=== PATIENT | male | born 1950 | race Caucasian/White ===

== ENCOUNTER 2018-09-02 04:31 | Inpatient (IN) | payer MEDICARE ==
[2018-09-02 05:17] VITALS: BMI 28.8
[2018-09-02] MEDS ORDERED: Acetaminophen 1,000 MG in Premix Bag 1 BAG IVPB PRN ×2 (06:08→07:36)
[2018-09-02] MEDS: Lactated Ringer's 1,000 ML IV SCH ×3 (06:10→21:49)
[2018-09-02] MEDS ORDERED: Dextrose 50% Abboject 50 ML SYRINGE SLOW IVP PRN (07:36)
[2018-09-02] MEDS ORDERED: Ketorolac Tromethamine 30 MG/ML VIAL IVP PRN (07:36)
[2018-09-02] MEDS ORDERED: Dextrose 5% in Water 1,000 ML IV PRN (07:36)
[2018-09-02] MEDS ORDERED: HumaLOG 300 UNITS/3 ML VIAL SC PRN (07:36)
[2018-09-02] MEDS ORDERED: Ketorolac Tromethamine 30 MG/ML VIAL IVP SCH (07:45)
[2018-09-02] MEDS ORDERED: Acetaminophen 1,000 MG in Premix Bag 1 BAG IVPB SCH (07:45)
[2018-09-02] MEDS ORDERED: Meropenem 2 GM in Admixture Fee 1 EACH IVPB SCH (07:45)
--- NOTE | 2018-09-02 07:54 | HP ---
HISTORY OF PRESENT ILLNESS: A 67-year-old male patient with 1 year history of abdominal pain, lower intermittent. This pain became extremely severe, increased belching, and nausea. No vomiting and he could not have a bowel movement. He presented to the emergency room and had a CAT scan, initially evaluated at [facility]. This reveals a distended stomach with food material, constipation and distal small bowel dilatation and swirling suggestive of internal hernia. The patient refused an NG tube. He reports today he had a small bowel movement last night after much effort. ALLERGIES: NONE. SOCIAL HISTORY: Tobacco, none. Alcohol, none. MEDICATIONS: Metformin 1000 mg b.i.d., glipizide 5 b.i.d., Flomax 0.4 daily, metoprolol 50 mg b.i.d., lisinopril 5 mg a day, Tradjenta 5 mg daily, furosemide 10 mg b.i.d., Plavix 75 mg a day, atorvastatin 80 mg daily, and aspirin 81 mg a day. PAST SURGICAL HISTORY: Colonoscopy 2 years ago. PAST MEDICAL HISTORY: Coronary artery disease with coronary stents placed in [place] 4 years ago. He states that he was told he had a silent [place]. He was seen by Dr. Hoover locally. He had a cardiac stress test 3 months ago that was normal. The patient is asymptomatic from a cardiac standpoint. Diabetes insulin dependent, hypertension, elevated cholesterol. REVIEW OF SYSTEMS: Ten-point noncontributory except as above. FAMILY HISTORY: Noncontributory. PHYSICAL EXAMINATION: VITAL SIGNS: 6 feet 1 inch, weight 218 pounds, 28 BMI, temperature 98.2, pulse 97, respirations 18, blood pressure 163/91. HEENT: Unremarkable. Sclerae nonicteric. LUNGS: Clear to auscultation. CARDIAC: Regular rate and rhythm. No murmur or gallop. ABDOMEN: Soft. Tenderness in his lower abdomen with mild distention. EXTREMITIES: Unremarkable. No ankle edema. SKIN: Non-jaundiced. LYMPH: No neck, axillary or groin lymphadenopathy. Palpable pedal pulses. LABORATORY DATA: Basic metabolic profile is normal. Glucose 120. White count 8 and hemoglobin 13. ASSESSMENT/PLAN: 1. Abdominal pain, chronic and more acute with CAT scan findings suggestive of possible internal hernia, I would recommend laparoscopy and procedures indicated, possible open procedure, possible adhesiolysis, possible bowel resection. He understands risks and benefits, and consents. 2. Diabetes mellitus. 3. Hypertension. 4. Coronary artery disease, stable. Stress test 3 months ago, Dr. Hoover's office, normal, asymptomatic from cardiac standpoint. Job ID: [id number]
[2018-09-02] MEDS: Pantoprazole 40 MG VIAL IVP SCH (08:40)
[2018-09-02] MEDS: Metoprolol Tartrate 50 MG TAB PO SCH ×2 (08:40→21:42)
[2018-09-02] MEDS ORDERED: Ketorolac Tromethamine 30 MG/ML VIAL ONE (16:08)
[2018-09-02] MEDS ORDERED: Lidocaine 1% PF 5 ML VIAL ONE (16:08)
[2018-09-02] MEDS ORDERED: Glycopyrrolate 0.2 MG/ML 5 ML SYRINGE ONE (16:08)
[2018-09-02] MEDS ORDERED: Ondansetron PF 4 MG/2 ML Vial ONE (16:08)
[2018-09-02] MEDS ORDERED: PROPOFOL 200 MG/20 ML VIAL ONE (16:08)
[2018-09-02] MEDS ORDERED: Dexamethasone 20 MG/5 ML VIAL ONE (16:08)
[2018-09-02] MEDS ORDERED: Rocuronium Bromide 10 MG/ML (10ML VIAL) ONE (16:08)
[2018-09-02] MEDS ORDERED: Meropenem 2 GM in Sodium Chloride 0.9% 100 ML IVPB SCH (16:45)
[2018-09-02] MEDS ORDERED: Bupivacaine HCl 0.5%/Epinephrine 1:200,000/PF 30 ml Vial ONE (17:21)
[2018-09-02] MEDS ORDERED: Fentanyl 100 MCG/2 ML VIAL ONE ×3 (17:29→20:21)
[2018-09-02] MEDS ORDERED: Midazolam HCl 2 mg/2 ml Vial ONE (17:43)
[2018-09-02] MEDS ORDERED: Ondansetron PF 4 MG/2 ML Vial IVP PRN (20:10)
[2018-09-02] MEDS ORDERED: HYDROmorphone 2 MG/ML VIAL SLOW IVP PRN (20:10)
[2018-09-02] MEDS ORDERED: Zolpidem Tartrate 5 MG TAB PO PRN (20:10)
[2018-09-02] MEDS ORDERED: Promethazine HCl 25 MG/ML VIAL IM PRN ×2 (20:10)
[2018-09-02] MEDS ORDERED: diphenhydrAMINE 50 MG/ML VIAL IVP PRN (20:10)
[2018-09-02] MEDS ORDERED: Ondansetron HCl/PF 4 MG/2 ML Vial IVP PRN (20:10)
[2018-09-02] MEDS ORDERED: Promethazine HCl 25 MG/ML VIAL SLOW IVP PRN (20:10)
[2018-09-02] MEDS ORDERED: PACU-Morphine 4MG/ML VIAL SLOW IVP PRN (20:10)
[2018-09-02] MEDS ORDERED: diphenhydrAMINE 50 MG/ML VIAL IM PRN (20:10)
[2018-09-02] MEDS ORDERED: diphenhydrAMINE 25 MG CAP PO PRN (20:10)
[2018-09-02] MEDS ORDERED: Naloxone HCl 0.4 mg/ml Vial IV PRN (20:10)
[2018-09-02] MEDS ORDERED: Communication Order-Pharmacy FS SCH (20:15)
--- NOTE | 2018-09-02 21:17 | RAD ---
SUPINE ABDOMEN: 09/02/18 HISTORY: NG tube placement. NG tube is in place with tip just beyond the EG junction. Bowel gas patter is unremarkable although s uboptimally evaluated. IMPRESSION: NG tube has tip just beyond the EG junction. POS: AGW
[2018-09-02] MEDS: Acetaminophen 1,000 MG in Premix Bag 1 BAG IVPB SCH (21:41)
[2018-09-02] MEDS: Enoxaparin Sodium 40 MG/0.4 ML SYRINGE SC SCH (21:42)
--- NOTE | 2018-09-03 02:45 | OP ---
DATE OF PROCEDURE: 09/02/2018 PREOPERATIVE DIAGNOSIS: Abdominal pain, chronic, with acute exacerbation, adhesions, congenital. POSTOPERATIVE DIAGNOSIS: Abdominal pain, chronic, with acute exacerbation, adhesions, congenital. PROCEDURES PERFORMED: Laparoscopic evaluation, converted to laparotomy; lysis of adhesions; repair of . ANESTHESIA: General, local 0.5% Marcaine with epinephrine 30 mL. DESCRIPTION OF PROCEDURE: The patient was taken to the operating room, where under general anesthesia, abdomen was clipped of hair, prepared with ChloraPrep and draped in routine fashion. Perez catheter was placed at the beginning of the procedure and removed at the end. NG tube placed during the operation, left in place. Abdomen was clipped of hair, prepared with ChloraPrep, and draped in routine fashion incision. A left lateral subcostal incision was made and pneumoperitoneum to 15 mmHg was obtained with a Veress needle, replaced with a 5 port, video laparoscope inserted. Left lower quadrant lateral made and a 5 port placed under laparoscopic visualization. The terminal ileum was identified and small bowel was followed proximally. In the proximal bowel, jejunum, there were multiple adhesions. Laparoscopic adhesiolysis was undertaken, but it was too extensive. Midline laparotomy was made, centered about the umbilicus, carried down through the skin, subcutaneous tissue, and the abdominal cavity sharply. The small bowel delivered out of the wound and adhesiolysis was completed. These were deep congenital adhesions and proximal small bowel was relatively dilated wall, slightly thickened related to distal. I then inspected the small bowel from the ligament of Treitz to cecum twice. As we handled it, there was 1 area of adhesiolysis that began to leak and this was closed with a transverse stapler BRIANNA technique. Staple closure was intact otherwise. Small bowel was inspected thoroughly and no other serosal injuries or leaks occurred. Good hemostasis was noted. Abdominal cavity was irrigated. The omentum was placed between the viscera and the abdominal wall. Seprafilm inserted. Midline fascia closed with continuous suture of #1 PDS. Skin and subcutaneous tissues were irrigated thoroughly. Good hemostasis obtained. Skin was approximated with continuous subcutaneous suture of 4-0 Monocryl as were the laparoscopic port sites. The patient tolerated the procedure well. Job ID: [id number]
[2018-09-03] MEDS: Acetaminophen 1,000 MG in Premix Bag 1 BAG IVPB SCH ×4 (03:13→20:42)
[2018-09-03 06:46] LABS: #Lymphocytes 0.8 thou/uL (1.20-3.40); #Monocytes 0.9 thou/uL (0.11-0.59); #Neutrophils 11.3 thou/uL (1.40-6.50); %Basophils 0.1 % (0.0-1.0); %Eosinophils 0.2 % (0.0-10.0); %Lymphocytes 6.3 % (21.0-51.0); %Monocytes 6.8 % (0.0-10.0); %Neutrophils 86.7 % (42.0-75.0); Hemoglobin 12.2 g/dL (14.0-18.0); Mean Corpuscular HGB CONC 31.9 g/dL (32.0-36.0); Mean Corpuscular Hemoglobin 29.5 pg (27.0-31.0); Mean Corpuscular Volume 92.7 fL (78.0-98.0); Mean Platelet Volume 8.4 fL (7.4-10.4); Platelet Count 176 thou/uL (130-400); RBC Distribution Width 12.2 % (11.5-14.5); Red Blood Cell (RBC) Count 4.13 mill/uL (4.70-6.10)
[2018-09-03 07:00] LABS: Anion Gap 10 mmol/L (10-20); BUN (Urea Nitrogen) 17 mg/dL (8.4-25.7); Calc. Creatinine Clearance 123 mL/min (70-130); Calcium 8.9 mg/dL (7.8-10.44); Carbon Dioxide 28 mmol/L (23-31); Chloride 103 mmol/L (98-107); Estimated GFR-MDRD Greater than 90; Glucose 151 mg/dL (80-115); Sodium 137 mmol/L (136-145)
[2018-09-03] MEDS: Lactated Ringer's 1,000 ML IV SCH ×2 (09:09→18:05)
[2018-09-03] MEDS: Pantoprazole 40 MG VIAL IVP SCH (09:10)
[2018-09-03] MEDS: Tamsulosin HCl 0.4 MG CAP PO SCH ×3 (09:18→18:27)
[2018-09-03] MEDS: Metoprolol Tartrate 50 MG TAB PO SCH ×2 (09:18→20:43)
--- NOTE | 2018-09-03 16:08 | PRG ---
DATE OF SERVICE: 09/03/2018 SUBJECTIVE: Nicho Torres is doing well today. He has not had any nausea or vomiting. NG tube has put out very little in last 24 hours, only 50 mL postoperatively. It is in proper position. OBJECTIVE: VITAL SIGNS: 98.6, 61, 105/64. LUNGS: Clear to auscultation. CARDIAC: Regular rate and rhythm without murmur or gallop. ABDOMEN: Soft. Wound looks good. Abdomen has diminished bowel sounds. Expected postoperative tenderness for midline incisions. Pain is well controlled with a MACHINE PULLER OVER pump. LABORATORY DATA: This morning, his white count is 13 and hemoglobin is 12. Basic metabolic profile is normal. ASSESSMENT AND PLAN: Doing well. Await GI function. Discontinue NG tube. Continue sips and chips. Increase mobility. Hopefully, we can start a diet tomorrow. Job ID: [id number]
[2018-09-03] MEDS: Enoxaparin Sodium 40 MG/0.4 ML SYRINGE SC SCH (20:44)
[2018-09-04] MEDS: Lactated Ringer's 1,000 ML IV SCH ×3 (06:04→16:30)
[2018-09-04] MEDS: Tamsulosin HCl 0.4 MG CAP PO SCH (08:40)
[2018-09-04] MEDS: Metoprolol Tartrate 50 MG TAB PO SCH ×2 (08:40→20:32)
[2018-09-04] MEDS: Pantoprazole 40 MG VIAL IVP SCH (08:40)
[2018-09-04] MEDS: HYDROmorphone 10 mg/100 ml CADD IVPB PRN (09:59)
--- NOTE | 2018-09-04 15:21 | PRG ---
DATE OF SERVICE: 09/04/2018 SUBJECTIVE: Nicho Torres is doing well today. He is tolerating NG tube out. He has not had any nausea or vomiting. He has not passed any flatus or stool. He is comfortable. He is receiving IV fluids. He has been ambulating hallways frequently. He is very compliant. OBJECTIVE: VITAL SIGNS: Temperature 98.3 degrees, pulse 66, blood pressure 152/82. LUNGS: Clear to auscultation. CARDIAC: Regular rate and rhythm. No murmur or gallop. ABDOMEN: Soft. Positive bowel sounds. Well-healed midline wound. LABORATORY DATA: Laboratories none today. ASSESSMENT AND PLAN: The patient is doing well. Continue n.p.o. status, except for ice chips and sips, gum and hard candy. He can continue mobility 5 or 10 times a day ambulating hallways. Await diet advancement for GI activity to try to avoid an NG tube. Job ID: [id number]
[2018-09-04] MEDS ORDERED: diphenhydrAMINE 30 GM TUBE TOP PRN (20:21)
[2018-09-04] MEDS: Enoxaparin Sodium 40 MG/0.4 ML SYRINGE SC SCH (20:32)
[2018-09-05] MEDS: Lactated Ringer's 1,000 ML IV SCH ×4 (01:23→23:22)
[2018-09-05] MEDS: Tamsulosin HCl 0.4 MG CAP PO SCH (08:37)
[2018-09-05] MEDS: Metoprolol Tartrate 50 MG TAB PO SCH ×2 (08:37→20:15)
[2018-09-05] MEDS: Pantoprazole 40 MG VIAL IVP SCH (08:37)
--- NOTE | 2018-09-05 11:57 | PRG ---
DATE OF SERVICE: 09/05/2018 SUBJECTIVE: Nicho Torres is doing well today. He has not passed any stool or flatus. He has not had any nausea or vomiting. He has not had hiccups or belching. He reports nursing has heard increased bowel sounds. OBJECTIVE: VITAL SIGNS: Temperature 99.6 degrees, pulse rate 70, blood pressure 152/75. HEAD, EYES, EARS, NOSE, AND THROAT: Unremarkable. LUNGS: Clear to auscultation. CARDIAC: Regular rate and rhythm. No murmur or gallop. ABDOMEN: Soft, minimally distended, mildly tympanitic. Rare bowel sounds. Incision looks good. LABORATORY DATA: None. ASSESSMENT AND PLAN: The patient is doing well. Await better GI function. Hope to start clear liquids soon. Continue IV fluids, and he has good mobility levels. Job ID: [id number]
[2018-09-05] MEDS: HYDROmorphone 10 mg/100 ml CADD IVPB PRN (14:48)
[2018-09-05] MEDS: Enoxaparin Sodium 40 MG/0.4 ML SYRINGE SC SCH (20:15)
[2018-09-05] MEDS ORDERED: Metoclopramide HCl 10 MG/2 ML VIAL IVP SCH (21:15)
[2018-09-06 06:32] LABS: #Eosinphils 0.1 thou/uL (0.0-0.7); #Monocytes 0.6 thou/uL (0.11-0.59); #Neutrophils 3.5 thou/uL (1.40-6.50); %Basophils 0.7 % (0.0-1.0); %Eosinophils 2.5 % (0.0-10.0); %Lymphocytes 18.8 % (21.0-51.0); %Monocytes 11.9 % (0.0-10.0); Hemoglobin 11.3 g/dL (14.0-18.0); Mean Corpuscular HGB CONC 32.5 g/dL (32.0-36.0); Mean Corpuscular Hemoglobin 29.3 pg (27.0-31.0); Mean Corpuscular Volume 90.2 fL (78.0-98.0); Mean Platelet Volume 7.6 fL (7.4-10.4); Platelet Count 175 thou/uL (130-400); RBC Distribution Width 11.5 % (11.5-14.5); Red Blood Cell (RBC) Count 3.85 mill/uL (4.70-6.10); White Blood Cell (WBC) Count 5.3 thou/uL (4.8-10.8)
[2018-09-06 07:00] LABS: ALT (SGPT) 12 U/L (8-55); AST (SGOT) 13 U/L (5-34); Albumin 3.2 g/dL (3.4-4.8); Alkaline Phosphatase 42 U/L (40-150); Anion Gap 13 mmol/L (10-20); BUN (Urea Nitrogen) 8 mg/dL (8.4-25.7); Bilirubin, Total 0.7 mg/dL (0.2-1.2); Calc. Creatinine Clearance 146 mL/min (70-130); Calcium 9.2 mg/dL (7.8-10.44); Carbon Dioxide 26 mmol/L (23-31); Chloride 103 mmol/L (98-107); Estimated GFR-MDRD Greater than 90; Globulin 2.5 g/dL (2.4-3.5); Glucose 101 mg/dL (80-115); Potassium 3.9 mmol/L (3.5-5.1); Protein, Total 5.7 g/dL (5.8-8.1); Sodium 138 mmol/L (136-145)
[2018-09-06] MEDS: Lactated Ringer's 1,000 ML IV SCH (08:14)
[2018-09-06] MEDS: Metoprolol Tartrate 50 MG TAB PO SCH ×2 (08:15→20:57)
[2018-09-06] MEDS: Tamsulosin HCl 0.4 MG CAP PO SCH (08:15)
[2018-09-06] MEDS: Pantoprazole 40 MG VIAL IVP SCH (08:16)
[2018-09-06] MEDS ORDERED: Lactated Ringer's 1,000 ML IV SCH (09:10)
--- NOTE | 2018-09-06 10:14 | PRG ---
DATE OF SERVICE: 09/06/2018 SUBJECTIVE: Nicho Torres is doing well today. OBJECTIVE: VITAL SIGNS: He is afebrile, blood pressure 167/83, respiratory rate 16, heart rate 81. LUNGS: Clear to auscultation CARDIAC: Regular rate and rhythm without murmur or gallop. ABDOMEN: Soft. Bowel sounds present, has passed flatus. LABORATORY DATA: Hemoglobin 11. Basic metabolic profile normal. Renal function normal. Liver function tests normal. ASSESSMENT/PLAN: Resuming bowel function. We will TKO his IV fluids, advance his diet slowly and hopefully later we can get rid of his ASSISTED LIVING EXECUTIVE DIRECTOR. After discontinuing his ASSISTED LIVING EXECUTIVE DIRECTOR, we will treat him on a regimen of Ultram, Tylenol, ibuprofen and avoid narcotics. Job ID: [id number]
[2018-09-06] MEDS: HYDROmorphone 10 mg/100 ml CADD IVPB PRN (17:19)
[2018-09-06] MEDS: Enoxaparin Sodium 40 MG/0.4 ML SYRINGE SC SCH (20:57)
[2018-09-07] MEDS: Tamsulosin HCl 0.4 MG CAP PO SCH (08:04)
[2018-09-07] MEDS: Metoprolol Tartrate 50 MG TAB PO SCH ×2 (08:04→20:36)
[2018-09-07] MEDS ORDERED: traMADol HCl 50 MG TAB PO PRN (13:09)
[2018-09-07] MEDS ORDERED: Ibuprofen 600 MG TAB PO PRN (13:09)
[2018-09-07] MEDS ORDERED: Acetaminophen 500 MG TAB PO PRN (13:09)
[2018-09-07] MEDS: traMADol HCl 50 MG TAB PO PRN ×2 (13:46→20:38)
--- NOTE | 2018-09-07 14:56 | PRG ---
DATE OF SERVICE: 09/07/2018 SUBJECTIVE: Nicho Torres is doing better today. He has had a bowel movement this morning. He is passing gas. He has been started on a diabetic diet. His WESTERN PHILOSOPHY PROFESSOR has been discontinued. He is placed on his home medications and oral analgesics. OBJECTIVE: LUNGS: Clear to auscultation. CARDIAC: Regular rate and rhythm without murmur or gallop. ABDOMEN: Soft, nontender. Bowel sounds present. Positive bowel movement, passed flatus. ASSESSMENT/PLAN: Resuming bowel function. Increase diet. PLAN: Discharge home tomorrow if continues to do well. Job ID: [id number]
[2018-09-07] MEDS: metFORMIN 500 MG TAB PO SCH (16:48)
[2018-09-07] MEDS: glipiZIDE 5 MG TAB PO SCH (20:36)
[2018-09-07] MEDS: Enoxaparin Sodium 40 MG/0.4 ML SYRINGE SC SCH (20:37)
[2018-09-07] MEDS: Furosemide 20 MG TAB PO SCH (20:37)
[2018-09-07] MEDS: Atorvastatin Calcium 40 MG TAB PO SCH (20:37)
[2018-09-07] MEDS ORDERED: Calcium Carbonate 500 MG ChewTAB PO PRN (21:31)
[2018-09-07] MEDS: Ondansetron PF 4 MG/2 ML Vial IVP PRN (23:15)
[2018-09-08] MEDS: Ondansetron PF 4 MG/2 ML Vial IVP PRN ×2 (07:23→19:24)
[2018-09-08] MEDS ORDERED: Non-Formulary Item 1 EACH (Atorvastatin Calcium [Atorvastatin Calcium] 80 MG) PO SCH (09:00)
[2018-09-08] MEDS ORDERED: Non-Formulary Item 1 EACH (Linagliptin [Tradjenta] 5 MG) PO SCH (09:00)
[2018-09-08] MEDS: Polyethylene Glycol 3350 17 GM Packet PO SCH (09:03)
[2018-09-08] MEDS: Metoprolol Tartrate 50 MG TAB PO SCH ×2 (09:04→20:13)
[2018-09-08] MEDS: metFORMIN 500 MG TAB PO SCH ×2 (09:05→17:36)
[2018-09-08] MEDS: Furosemide 20 MG TAB PO SCH ×2 (09:05→20:11)
[2018-09-08] MEDS: Lisinopril 5 MG TAB PO SCH (09:05)
[2018-09-08] MEDS: glipiZIDE 5 MG TAB PO SCH ×2 (09:05→20:11)
[2018-09-08] MEDS: Aspirin 81 mg Enteric Coated Tablet PO SCH (09:05)
[2018-09-08] MEDS: Clopidogrel Bisulfate 75 MG TAB PO SCH (09:05)
[2018-09-08] MEDS: Alogliptin 25 MG TAB PO SCH (09:06)
[2018-09-08] MEDS: Tamsulosin HCl 0.4 MG CAP PO SCH (09:06)
--- NOTE | 2018-09-08 10:02 | PRG ---
DATE OF SERVICE: 09/08/2018 SUBJECTIVE: Nicho Torres is doing well today. He had nausea last night and this morning. He took Zofran. He has passed flatus. He ate a small amount of breakfast, but he is reluctant to eat more because of his recent nausea. OBJECTIVE: VITAL SIGNS: Temperature 98 degrees, pulse 73, and blood pressure 121/78. LUNGS: Clear to auscultation. CARDIAC: Regular rate and rhythm without murmur or gallop. ABDOMEN: Soft. Wound well healed. Bowel sounds present. Slightly distended, tympanitic, but nontender. ASSESSMENT AND PLAN: Slowly improving bowel function observed today. Hopefully, he can be discharged home tomorrow pending bowel function and resolution of his nausea. Job ID: [id number]
--- NOTE | 2018-09-08 10:53 | DIS ---
DATE OF ADMISSION: 09/02/2018 DATE OF DISCHARGE: 09/07/2018 DISCHARGE DIAGNOSES: Partial bowel obstruction, chronic abdominal pain secondary to above. PAST SURGICAL HISTORY: Colonoscopy 2 years ago. PAST MEDICAL HISTORY: Coronary artery disease, coronary stents placed in [place] 4 years ago. I was told he had a silent [place]. He was seen by Dr. Hoover locally. He had a cardiac stress test 3 months ago that was normal. Asymptomatic from cardiac standpoint. Diabetes, insulin dependent; hypertension; elevated cholesterol. HISTORY: A 67-year-old male with one year history of abdominal pain, lower abdomen, intermittent, became extremely severe, increased belching and nausea but without vomiting. He cannot have a bowel movement. He presented to the emergency room and a CAT scan in [facility] revealed distended stomach with food material, constipation, distal small bowel dilatation, swirling suggestive of internal hernia. The patient refused an NG tube, transported to [facility] with a question of the internal hernia. The patient received intravenous fluids and antibiotics. He was taken to the operating room, where he underwent laparoscopy, converted to laparotomy with lysis of adhesions. He had a small enterotomy that was repaired. NG tube was left in place. The patient had abundant adhesions probably congenital. This is very unusual. There was relatively proximal small-bowel dilatation. The patient postoperatively had an NG tube overnight, he had very little output, it was removed. He was kept the n.p.o. until he passed flatus and stool and then he began taking liquids. He had a bowel movement. He is discharged home at this time to resume his home medications and diabetic diet. He is to follow up with me in 2 to 3 weeks. He has a subcuticular skin closure. No lifting over 25 pounds for 6 weeks. He is to resume his home medications; metformin 1000 b.i.d., glipizide 5 b.i.d., Flomax 0.4 mg a day, Lopressor 50 mg b.i.d., lisinopril 5 mg daily, Tradjenta 5 mg daily, furosemide 10 mg b.i.d., Plavix 75 daily, atorvastatin 80 mg daily, aspirin 81 mg a day. No lifting over 25 pounds for 6 weeks. May shower and bathe. Job ID: [id number]
[2018-09-08] MEDS: Enoxaparin Sodium 40 MG/0.4 ML SYRINGE SC SCH (20:10)
[2018-09-08] MEDS: Atorvastatin Calcium 40 MG TAB PO SCH (20:11)
[2018-09-09 04:48] VITALS: TEMP 98.2
[2018-09-09] MEDS: Lisinopril 5 MG TAB PO SCH (08:16)
[2018-09-09] MEDS: Metoprolol Tartrate 50 MG TAB PO SCH (08:16)
[2018-09-09] MEDS: glipiZIDE 5 MG TAB PO SCH (08:17)
[2018-09-09] MEDS: Clopidogrel Bisulfate 75 MG TAB PO SCH (08:17)
[2018-09-09] MEDS: Aspirin 81 mg Enteric Coated Tablet PO SCH (08:17)
[2018-09-09] MEDS: Tamsulosin HCl 0.4 MG CAP PO SCH (08:18)
[2018-09-09] MEDS: Alogliptin 25 MG TAB PO SCH (08:18)
[2018-09-09] MEDS: Furosemide 20 MG TAB PO SCH (08:18)
[2018-09-09] MEDS: metFORMIN 500 MG TAB PO SCH (08:18)
[2018-09-09] MEDS: traMADol HCl 50 MG TAB PO PRN (08:27)
[2018-09-09] MEDS: Polyethylene Glycol 3350 17 GM Packet PO SCH ×2 (08:28→10:19)
[2018-09-09 12:00] VITALS: BP 136/81
[2018-09-09 12:14] LABS: #Eosinphils 0.2 thou/uL (0.0-0.7); #Lymphocytes 1.2 thou/uL (1.20-3.40); #Monocytes 0.7 thou/uL (0.11-0.59); #Neutrophils 3.6 thou/uL (1.40-6.50); %Basophils 0.7 % (0.0-1.0); %Eosinophils 2.7 % (0.0-10.0); %Lymphocytes 21.4 % (21.0-51.0); %Monocytes 12.4 % (0.0-10.0); %Neutrophils 62.8 % (42.0-75.0); Hemoglobin 11.6 g/dL (14.0-18.0); Mean Corpuscular HGB CONC 33.4 g/dL (32.0-36.0); Mean Corpuscular Hemoglobin 30.2 pg (27.0-31.0); Mean Corpuscular Volume 90.5 fL (78.0-98.0); Mean Platelet Volume 6.9 fL (7.4-10.4); Platelet Count 216 thou/uL (130-400); RBC Distribution Width 11.5 % (11.5-14.5); Red Blood Cell (RBC) Count 3.83 mill/uL (4.70-6.10); White Blood Cell (WBC) Count 5.7 thou/uL (4.8-10.8)
[2018-09-09 12:35] LABS: Anion Gap 9 mmol/L (10-20); BUN (Urea Nitrogen) 7 mg/dL (8.4-25.7); Calc. Creatinine Clearance 130 mL/min (70-130); Calcium 9.5 mg/dL (7.8-10.44); Carbon Dioxide 31 mmol/L (23-31); Chloride 102 mmol/L (98-107); Estimated GFR-MDRD Greater than 90; Glucose 116 mg/dL (80-115); Potassium 4.3 mmol/L (3.5-5.1); Sodium 138 mmol/L (136-145)
--- NOTE | 2018-09-09 13:28 | PRG ---
DATE OF SERVICE: 09/09/2018 SUBJECTIVE: Nicho Torres is doing well today. OBJECTIVE: VITAL SIGNS: Temperature 98 degrees, pulse 72, blood pressure 138/81. LUNGS: Clear to auscultation. CARDIAC: Regular rate and rhythm without murmur or gallop. ABDOMEN: Soft and nontender. There is no evidence of a wound infection. EXTREMITIES: Unremarkable. LABORATORY DATA: This morning, white count 5, hemoglobin 11.6. Basic metabolic profile is normal. I ordered labs because this morning he reported he had some subjective chills and felt warm, although he has been afebrile and his vital signs are normal. He had numerous bowel movements and passing flatus. ASSESSMENT AND PLAN: Recovering bowel function. I expect that the patient will be able to be discharged home later today. He will take Tylenol, ibuprofen, and tramadol if necessary. Resume his home medications and follow up with me in 2 to 3 weeks. Avoid lifting over 20 pounds for 6 weeks. Job ID: [id number]
== END 2018-09-09 15:00 | disposition home or self-care (01) | DRG 336 ==
LOC: SURG A 04:31
PROVIDERS: ADMIT Specialist; ATTEND Specialist
PROC: 0WJP4ZZ Inspection of Gastrointestinal Tract, Percutaneous Endoscopic Approach (ICD-10-PCS; principal; 2018-09-02)
PROC: 0DN80ZZ Release Small Intestine, Open Approach (ICD-10-PCS; 2018-09-02)
DX: K56.51 Intestinal adhesions [bands], with partial obstruction (principal); Q43.9 Congenital malformation of intestine, unspecified; I25.10 Atherosclerotic heart disease of native coronary artery without angina pectoris; I10 Essential (primary) hypertension; E78.00 Pure hypercholesterolemia, unspecified; K59.00 Constipation, unspecified; Z79.82 Long term (current) use of aspirin; I25.2 Old myocardial infarction; Z95.5 Presence of coronary angioplasty implant and graft; Z79.84 Long term (current) use of oral hypoglycemic drugs; Z79.899 Other long term (current) drug therapy
CPT/HCPCS: 36415; 36416; 74018; 80048; 80053; 85025; C9113; J0131; J0670; J1100; J1200; J1650; J1885; J2001; J2185; J2250; J2405; J2550; J2704; J2765; J3010; J3490; Q0163

== ENCOUNTER 2018-09-16 16:00 | Inpatient (IN) | payer MEDICARE ==
[2018-09-16] MEDS ORDERED: Morphine 4 MG/ML VIAL ONE (16:33)
[2018-09-16] MEDS ORDERED: Ondansetron PF 4 MG/2 ML Vial ONE (16:33)
[2018-09-16] MEDS ORDERED: Benzocaine 20% Spray 60 ML CAN ONE (16:34)
[2018-09-16] MEDS ORDERED: Lidocaine Viscous Sol 2% 15 ml UD Cup ONE (16:34)
[2018-09-16] MEDS ORDERED: Dextrose 50% Abboject 50 ML SYRINGE SLOW IVP PRN (17:45)
[2018-09-16] MEDS ORDERED: Dextrose 5% in Water 1,000 ML IV PRN (17:45)
[2018-09-16] MEDS ORDERED: hydrALAZINE 20 MG/ML VIAL SLOW IVP PRN (17:45)
[2018-09-16] MEDS ORDERED: Morphine 4 MG/ML VIAL SLOW IVP PRN ×2 (17:45→19:18)
[2018-09-16] MEDS ORDERED: HumaLOG 300 UNITS/3 ML VIAL SC PRN (17:45)
[2018-09-16] MEDS ORDERED: Morphine 2 MG/ML SYRINGE SLOW IVP PRN ×2 (17:45→19:18)
--- NOTE | 2018-09-16 17:48 | RAD ---
Exam: 1 view abdomen HISTORY: NG tube placement COMPARISON: 09/02/2018 FINDINGS: Multiple air-filled distended loops of small bowel. Nasogastric tube terminates in the epig astric region and is within the expected region of the stomach. IMPRESSION: Nasogastric tube as above.
[2018-09-16] MEDS ORDERED: Acetaminophen 1,000 MG in Premix Bag 1 BAG IVPB PRN (17:52)
[2018-09-16] MEDS ORDERED: Metoprolol Tartrate 5 MG/5 ML VIAL IVP PRN (17:57)
[2018-09-16] MEDS ORDERED: Ondansetron PF 4 MG/2 ML Vial IVP PRN (19:18)
[2018-09-16] MEDS ORDERED: Ondansetron ODT 4 MG TAB SL PRN (19:18)
[2018-09-16] MEDS: Lorazepam 2 MG/ML VIAL SLOW IVP PRN (19:24)
[2018-09-16] MEDS: Ondansetron PF 4 MG/2 ML Vial IVP PRN (19:27)
[2018-09-16] MEDS: Ketorolac Tromethamine 30 MG/ML VIAL IVP SCH ×2 (19:29→23:51)
[2018-09-16] MEDS ORDERED: Sodium Chloride 0.9% 1,000 ML IV SCH (19:30)
[2018-09-16 20:13] VITALS: BMI 31.7
[2018-09-16] MEDS: Metoprolol Tartrate 50 MG TAB PO SCH (22:44)
[2018-09-16] MEDS: Enoxaparin Sodium 40 MG/0.4 ML SYRINGE SC SCH (22:44)
[2018-09-16] MEDS: Lactated Ringer's 1,000 ML IV SCH (22:44)
--- NOTE | 2018-09-16 23:48 | HP ---
HISTORY OF PRESENT ILLNESS: Nicho Torres is a 68-year-old male patient who presents to the emergency room with abdominal bloating, cramping, abdominal distention. Dr. Cook has evaluated him and CT scan of the abdomen and pelvis reveals suggestive of bowel obstruction with a transition zone in the distal ileum. On this CT scan, he does have stool in the colon. He has a distended stomach and small bowel. The patient reports he has been passing flatus while in the emergency room, and early this morning, he did have small bowel movements. The patient underwent on 09/02/2018, laparotomy with extensive adhesiolysis. He presented at that time with a year and a half history of abdominal distention and discomfort and nausea. He did not have a prior surgical history of the abdomen. Considering his complaints and radiological findings at that time, he underwent laparoscopy noting extensive congenital adhesions converted to a laparotomy with 2-hour adhesiolysis and repair of a small enterotomy. Postoperatively, he had a long ileus, was monitored for two and half days while he passed flatus, had bowel movements to assure that he was tolerating his diet and discharged home. I saw him in my office yesterday. His wound looked good. He was having some complaints of mild abdominal discomfort and belching and subjective distention. Exam revealed bowel sounds present. Minimal tympany. He had what I felt was his baseline abdomen size. We discussed that at that time observation versus hospitalization and he chose the former. He, however, now presents with the above findings. He states although he has not had any vomiting, he has been experiencing increased belching, burping, and indigestion. His current CT scan reveals gastric distention, small bowel distention, and plan at this time is to place an NG tube, hydration, observation, repeat his abdominal x-rays. ALLERGIES: NONE. SOCIAL HISTORY: Tobacco, none. Alcohol, none. MEDICATIONS: 1. Metformin 1000 b.i.d. 2. Glipizide 5 mg b.i.d. 3. Flomax 0.4 mg. 4. Metoprolol 50 mg b.i.d. 5. Lisinopril 5 mg a day. 6. Tradjenta 5 mg a day. 7. Furosemide 10 mg b.i.d. 8. Plavix 75 mg a day. 9. Atorvastatin 80 mg a day. 10. Aspirin 81 mg a day. PAST SURGICAL HISTORY: Colonoscopy two years ago and 2 weeks ago laparoscopy converted to laparotomy with adhesiolysis and repair of a small enterotomy without significant contamination. PAST MEDICAL HISTORY: Coronary artery disease with coronary stents placed in [place] 4 years ago. He reports he had a silent ID at that time. He was seen by Dr. Hoover locally and had a cardiac stress test 3 months prior to the recent hospitalization that was normal. He is asymptomatic from a cardiac standpoint. Diabetes mellitus insulin dependent, hypertension, and elevated cholesterol. REVIEW OF SYSTEMS: Noncontributory. FAMILY HISTORY: Noncontributory. PHYSICAL EXAMINATION: VITAL SIGNS: Weight 94 kg, respiratory rate 16, temperature 97.8 degrees, blood pressure 133/86, 88 heart rate. HEAD, EYES, EARS, NOSE AND THROAT: Unremarkable. LUNGS: Clear to auscultation. CARDIAC: Regular rate and rhythm without murmur or gallop. ABDOMEN: Soft, mild distention. Mild tympany. Bowel sounds present. Well-healed midline incision. EXTREMITIES: Unremarkable. LABORATORY DATA: White count is 8, hemoglobin 12 and discharge hemoglobin 13 on 09/14. Basic metabolic profile normal. Potassium 3.9, sodium 139, carbon dioxide 25, BUN and creatinine 14 and 0.68, GFR 90, glucose 128. Hemoglobin A1c on last hospitalization is 6.7. ASSESSMENT AND PLAN: 1. Partial bowel obstruction. He has gastric distention, nausea, belching. We will plan placement of NG tube which we have successfully placed evacuating approximately 400 mL immediately of feculent-appearing material. The patient is anxious. NG tube placement was difficult. He almost removed it once we had it in place, but I encouraged him to leave it. He can have sips and chips. We will repeat abdominal x-rays tomorrow, Wednesday morning and Wednesday morning. Further management based on clinical course. NG tube placement today followed by abdominal x-ray for placement reveals NG tube to be in good position. 2. Diabetes mellitus, insulin dependent. Accu-Cheks. Sliding scale insulin. Job ID: [id number]
[2018-09-17] MEDS: Ondansetron PF 4 MG/2 ML Vial IVP PRN ×3 (01:57→16:03)
[2018-09-17] MEDS: Lactated Ringer's 1,000 ML IV SCH ×3 (05:24→20:49)
[2018-09-17] MEDS: Ketorolac Tromethamine 30 MG/ML VIAL IVP SCH ×3 (05:24→17:04)
[2018-09-17 06:01] LABS: Magnesium 1.8 mg/dL (1.6-2.6); Phosphorus 3.2 mg/dL (2.3-4.7)
[2018-09-17] MEDS: Lorazepam 2 MG/ML VIAL SLOW IVP PRN ×2 (07:53→17:03)
[2018-09-17] MEDS: Tamsulosin HCl 0.4 MG CAP PO SCH (08:00)
[2018-09-17] MEDS: Pantoprazole 40 MG VIAL IVP SCH (08:00)
[2018-09-17] MEDS: Metoprolol Tartrate 50 MG TAB PO SCH ×2 (08:00→20:40)
--- NOTE | 2018-09-17 11:22 | RAD ---
Abdomen 2 views INDICATION: history of partial small bowel obstruction Comparison: Prior exam dated September 16, 2018 FINDINGS: The previously administered enteric contrast seen on the comparison abdominal radiograph altamirano s now migrated to the level of the distal small bowel and colon. The dilated gas-filled loops of small bowel within the left upper quadrant of the abdomen and central abdomen have decreased in size. Gastric catheter projects in the region of the gastric antrum. There is contrast present within the bladder consistent with prior IV contrast administered on a CT examination dated 09/16/2018. There is scattered degenerative change. IMPRESSION: Improving mild partial small bowel obstruction.
[2018-09-17] MEDS ORDERED: Morphine 2 MG/ML SYRINGE SLOW IVP PRN ×2 (18:49→18:50)
[2018-09-17] MEDS ORDERED: Lorazepam 2 MG/ML VIAL SLOW IVP PRN (18:50)
[2018-09-17] MEDS: Enoxaparin Sodium 40 MG/0.4 ML SYRINGE SC SCH (20:40)
--- NOTE | 2018-09-17 21:21 | PRG ---
DATE OF SERVICE: 09/17/2018 This is Cecily Palm NP dictating a report for Dr. Stafford. SUBJECTIVE: This is a 68-year-old gentleman status post laparotomy, lysis of adhesions, small enterotomy repair on 09/02/2018. The patient presented to the emergency room with complaints of abdominal bloating, cramping, abdominal distention. The patient had no overnight events. The patient reports that he is able to pass a little bit of gas, the patient has been walking. The patient continues to have some abdominal distention. The patient's NG tube was repositioned and irrigated as it appeared to be too deep. OBJECTIVE: VITAL SIGNS: Temperature 97.9, pulse 79, respirations 18, SpO2 of 95% on room air, and blood pressure 130/71. GENERAL: The patient is awake and alert, in no distress. HEENT: Unremarkable. RESPIRATORY: No respiratory distress, bilateral breath sounds clear. CARDIAC: Regular rate and rhythm. ABDOMEN: Mild distention, soft, mild tympany, bowel sounds present, well-healed midline incision. EXTREMITIES: Unremarkable. LABORATORY DATA: Phosphorus 3.2, magnesium 1.8, and glucose 95. DIAGNOSTICS: Abdominal x-ray, improving mild partial small bowel obstruction. IMPRESSION: 1. Partial bowel obstruction, resolving. 2. History of coronary artery disease, insulin-dependent diabetes, history of coronary stents. PLAN: We will continue to keep patient n.p.o. and NG tube to low wall suction. We will continue to encourage the patient to be up in the chair most of the day and to ambulate as much as possible. The patient was examined this morning with Dr. Stafford. Job ID: [id number]
[2018-09-18] MEDS: Ketorolac Tromethamine 30 MG/ML VIAL IVP SCH ×5 (00:47→23:48)
[2018-09-18] MEDS: Ondansetron PF 4 MG/2 ML Vial IVP PRN (00:50)
[2018-09-18] MEDS ORDERED: Chloraseptic Spray 180 ml Bottle PO PRN (01:06)
[2018-09-18] MEDS: Lactated Ringer's 1,000 ML IV SCH ×3 (06:21→20:32)
[2018-09-18 07:20] LABS: ALT (SGPT) 45 U/L (8-55); AST (SGOT) 25 U/L (5-34); Alkaline Phosphatase 91 U/L (40-150); Anion Gap 13 mmol/L (10-20); BUN (Urea Nitrogen) 13 mg/dL (8.4-25.7); Bilirubin, Total 0.4 mg/dL (0.2-1.2); Calc. Creatinine Clearance 134 mL/min (70-130); Calcium 8.8 mg/dL (7.8-10.44); Carbon Dioxide 26 mmol/L (23-31); Chloride 105 mmol/L (98-107); Estimated GFR-MDRD Greater than 90; Globulin 2.3 g/dL (2.4-3.5); Glucose 88 mg/dL (80-115); Potassium 3.9 mmol/L (3.5-5.1); Protein, Total 5.3 g/dL (5.8-8.1); Sodium 140 mmol/L (136-145)
[2018-09-18 07:50] LABS: Band 10 % (5-11); Eosinophils 3 % (0-10); Lymphocytes 19 % (21-51); MDiff Complete? YES; Mean Corpuscular HGB CONC 32.8 g/dL (32.0-36.0); Mean Corpuscular Hemoglobin 29.7 pg (27.0-31.0); Mean Corpuscular Volume 90.6 fL (78.0-98.0); Mean Platelet Volume 7.3 fL (7.4-10.4); Monocytes 15 % (0-10); Neutrophil 53 % (42-75); Platelet Count 341 thou/uL (130-400); RBC Distribution Width 11.7 % (11.5-14.5); Red Blood Cell (RBC) Count 3.71 mill/uL (4.70-6.10); White Blood Cell (WBC) Count 6.3 thou/uL (4.8-10.8)
[2018-09-18] MEDS: Metoprolol Tartrate 50 MG TAB PO SCH ×2 (09:00→20:33)
[2018-09-18] MEDS: Pantoprazole 40 MG VIAL IVP SCH (09:00)
[2018-09-18] MEDS: Tamsulosin HCl 0.4 MG CAP PO SCH (09:00)
[2018-09-18] MEDS ORDERED: Lorazepam 1 MG TAB PO PRN (15:24)
--- NOTE | 2018-09-18 16:11 | PRG ---
DATE OF SERVICE: 09/18/2018 This is Cecily Palm NP dictating a report for Roc Stafford DO. SUBJECTIVE: This is a 68-year-old gentleman, status post laparotomy, lysis of adhesions, small enterotomy repair on 09/02/2018. The patient was re-admitted for possible small-bowel obstruction. The patient continues to improve. He denies any nausea at this time and reports that his abdominal bloating, cramping, and distention have improved. The patient continues to pass gas and did have a bowel movement. OBJECTIVE: VITAL SIGNS: Temperature 98.4, pulse 70, respirations 14, SpO2 of 95% on room air, blood pressure 129/68. GENERAL: The patient awake and alert, in no distress currently with NG tube in place. HEENT: Unremarkable. RESPIRATORY: No respiratory distress, bilateral breath sounds clear, equal and unlabored. CARDIAC: Regular rate and rhythm. ABDOMEN: Soft, nontender. Active bowel sounds. Well-healed midline incision. EXTREMITIES: Unremarkable. LABORATORY DATA: WBC 6.3, RBC 3.71, hemoglobin 11.0, hematocrit 33.6, and platelets 341. Sodium 140, potassium 3.9, chloride 105, carbon dioxide 26, anion gap 13, BUN 13, creatinine 0.69, estimated GFR greater than 90, glucose 88, and calcium 8.8. Total bilirubin 0.4, AST 25, ALT 45, alkaline phosphatase 91, serum total protein 5.3, albumin 3.0, globulin 2.3, ratio of albumin and globulin 1.3. DIAGNOSTIC STUDIES: There are no diagnostics to review today. IMPRESSION: 1. Partial small-bowel obstruction, resolving. 2. History of coronary artery disease. 3. Insulin-dependent diabetes. 4. History of coronary artery stents. PLAN: We will advance the patient to clear liquid diet as tolerated. We will remove the patient's NG tube. We will encourage the patient to continue to mobilize and sit up in the chair most of the day. We will restart the patient's home medications. If the patient continues to improve, the patient should be able to be discharged home tomorrow. The patient was examined with Dr. Stafford during rounds. Job ID: [id number]
[2018-09-18] MEDS: Acetaminophen 500 MG TAB PO SCH ×2 (18:40→23:46)
[2018-09-18] MEDS ORDERED: Ondansetron ODT 4 MG TAB PO PRN (18:42)
[2018-09-18] MEDS: Furosemide 20 MG TAB PO SCH (20:33)
[2018-09-18] MEDS: Enoxaparin Sodium 40 MG/0.4 ML SYRINGE SC SCH (20:33)
[2018-09-18] MEDS ORDERED: glipiZIDE 5 MG TAB PO SCH (21:00)
[2018-09-19] MEDS: Lactated Ringer's 1,000 ML IV SCH (03:26)
[2018-09-19] MEDS: Ketorolac Tromethamine 30 MG/ML VIAL IVP SCH (05:34)
[2018-09-19] MEDS: Acetaminophen 500 MG TAB PO SCH (05:38)
--- NOTE | 2018-09-19 08:16 | RAD ---
XR Abdomen 2 View History: [Bowel obstruction] Comparison: Radiograph 2 days prior Findings: There are mildly distended loops of small bowel the abdomen. Evaluation for free air is hanson ited without an upright exam. There is contrast within the large bowel. Mild vascular calcifications. Suture material around the right lower quadrant of the abdomen. Impression: No evidence for a high-grade small bowel obstruction. Mildly distended loops of small bow el.
[2018-09-19] MEDS: Tamsulosin HCl 0.4 MG CAP PO SCH (08:59)
[2018-09-19] MEDS: Furosemide 20 MG TAB PO SCH (08:59)
[2018-09-19] MEDS: Metoprolol Tartrate 50 MG TAB PO SCH (09:00)
[2018-09-19] MEDS ORDERED: Clopidogrel Bisulfate 75 MG TAB PO SCH (09:00)
[2018-09-19] MEDS ORDERED: Polyethylene Glycol 3350 17 GM Packet PO SCH (09:00)
[2018-09-19] MEDS ORDERED: OMEPRAZOLE 10 MG PO SCH (09:00)
[2018-09-19] MEDS ORDERED: Alogliptin 25 MG TAB PO SCH (09:00)
[2018-09-19] MEDS ORDERED: Non-Formulary Item 1 EACH (Linagliptin [Tradjenta] 5 MG) PO SCH (09:00)
[2018-09-19] MEDS ORDERED: Lisinopril 5 MG TAB PO SCH (09:00)
[2018-09-19 11:37] VITALS: BP 157/72; TEMP 98.1
--- NOTE | 2018-09-19 13:10 | PRG ---
DATE OF SERVICE: 09/19/2018 SUBJECTIVE: Nicho Torres is doing well today. I admitted him on Wednesday for bowel obstruction to the emergency room. NG tube had been placed. Over the weekend, Dr. Stafford took care of him. The patient convalesced to have bowel movements, GI function, NG tube removed, and he is tolerating liquids and then regular diet at noon. Followup x-rays today revealed the contrast from his CAT scan 3 days ago, Wednesday, to be in his colon. He has had multiple bowel movements. His abdomen is soft, nontender, nondistended, and non-tympanitic. PLAN: Plan is for discharge home today. He will take MiraLAX double dose twice a day, fiber once a day to 2 times a day, and follow up with me in 2 weeks. Job ID: [id number]
--- NOTE | 2018-09-20 04:24 | DIS ---
DATE OF ADMISSION: 09/16/2018 DATE OF DISCHARGE: 09/19/2018 DISCHARGE DIAGNOSES: 1. Partial bowel obstruction, 2 weeks status post laparotomy adhesiolysis for congenital adhesions. 2. Diabetes mellitus. PROCEDURES DURING THIS HOSPITALIZATION: CT scan of the abdomen and pelvis noting a transition point with abundant stool in the colon and dilated small bowel and a full stomach, placement of NG tube. Serial x-rays, followup in 2 to 3 weeks. HISTORY: A 68-year-old male patient, status post laparoscopy converted to laparotomy for congenital adhesions, undergone a 2-hour adhesiolysis and repair of a small enterotomy 2 weeks ago. He had a several day convalescence. Discharged home with bowel function. He reports to the emergency room having nausea, cramps, and distention. NG tube was placed and had about 400 to 500 feculent output. Over the weekend, his bowel function resumed and he is having regular bowel movements with significant volume. He has been discharged home at this time to resume his home medications as well as double-dose MiraLAX twice a day and fiber every day. He will follow up with Dr. Lombardo in 2 weeks. He will resume his home medications for his diabetes. Job ID: [id number]
== END 2018-09-19 11:56 | disposition home or self-care (01) | DRG 390 ==
LOC: ERS 16:00 → SURG A 16:44
PROVIDERS: ADMIT Specialist; ATTEND Specialist
PROC: 0D9670Z Drainage of Stomach with Drainage Device, Via Natural or Artificial Opening (ICD-10-PCS; principal; 2018-09-16)
DX: K56.600 Partial intestinal obstruction, unspecified as to cause (principal); E11.9 Type 2 diabetes mellitus without complications; I25.10 Atherosclerotic heart disease of native coronary artery without angina pectoris; I10 Essential (primary) hypertension; E78.5 Hyperlipidemia, unspecified; Z98.890 Other specified postprocedural states; Z95.5 Presence of coronary angioplasty implant and graft; Z79.4 Long term (current) use of insulin; Z79.84 Long term (current) use of oral hypoglycemic drugs; Z79.82 Long term (current) use of aspirin; Z79.01 Long term (current) use of anticoagulants
CPT/HCPCS: 36415; 36416; 74018; 74019; 80053; 83735; 84100; 85025; 87045; 87046; 87449; 87899; 96374; 96375; 99211; C9113; G0463; J1650; J1885; J2060; J2270; J2405; Q0162

== ENCOUNTER 2021-11-04 07:15 | Outpatient (CLI) | payer MEDICARE | END 2021-11-04 07:16 | disposition home or self-care (01) | LOC: ULT 07:15 | PROVIDERS: ATTEND Physician Assistant | DX: Z13.6 Encounter for screening for cardiovascular disorders (principal); Z82.49 Family history of ischemic heart disease and other diseases of the circulatory system | CPT/HCPCS: 76775 ==

== ENCOUNTER 2024-03-15 10:58 | Outpatient (CLI) | payer MEDICARE, OTHER ==
[2024-03-15 12:13] LABS: #Basophils 0.06 10x3/uL (0.0-0.2); %Basophils 0.9 % (0.0-1.0); %Eosinophils 2.2 % (0.0-10.0); %Lymphocytes 34.3 % (21.0-51.0); %Monocytes 10.9 % (0.0-10.0); %Neutrophils 51.6 % (42.0-75.0); Hematocrit 37.5 % (42.0-52.0); Hemoglobin 12.1 g/dL (14.0-18.0); Mean Corpuscular HGB CONC 32.3 g/dL (32.0-36.0); Mean Corpuscular Hemoglobin 29.1 pg (27.0-31.0); Mean Corpuscular Volume 90.1 fL (78.0-98.0); Mean Platelet Volume 10.1 fL (7.4-10.4); Platelet Count 214 10x3/uL (130-400); RBC Distribution Width 14.6 % (11.5-14.5); Red Blood Cell (RBC) Count 4.16 mill/uL (4.70-6.10)
[2024-03-15 12:35] LABS: Anion Gap 12 mmol/L (10-20); BUN (Urea Nitrogen) 16 mg/dL (8.4-25.7); Calc. Creatinine Clearance 0 mL/min (70-130); Calcium 9.6 mg/dL (7.8-10.44); Carbon Dioxide 24 mmol/L (23-31); Chloride 105 mmol/L (98-107); Estimated GFR 91; Glucose 194 mg/dL (83-110); Potassium 4.8 mmol/L (3.5-5.1); Sodium 136 mmol/L (136-145)
== END 2024-03-15 10:59 | disposition home or self-care (01) ==
LOC: LABBT 10:58
PROVIDERS: ATTEND Internal Medicine Cardiovascular Disease
DX: Z01.812 Encounter for preprocedural laboratory examination (principal); I25.10 Atherosclerotic heart disease of native coronary artery without angina pectoris
CPT/HCPCS: 80048; 85025

== ENCOUNTER 2024-03-20 05:32 | Day surgery (SDC) | payer MEDICARE, OTHER ==
[2024-03-15 11:20] VITALS: BMI 30.3
[2024-03-20] MEDS ORDERED: Heparin 10,000 UNITS/ 10 ML VIAL ONE (06:24)
[2024-03-20] MEDS ORDERED: Verapamil 5 MG/2 ML VIAL ONE (06:24)
[2024-03-20] MEDS ORDERED: Midazolam HCl 2 mg/2 ml Vial ONE (06:24)
[2024-03-20] MEDS ORDERED: fentaNYL 50 mcg/mL 1 mL Vial ONE (06:24)
[2024-03-20] MEDS ORDERED: Nitroglycerin 50 MG/250 ML BOT 250 ML ONE (06:24)
[2024-03-20] MEDS ORDERED: Adenosine 6 mg (2 mL) VIAL ONE (06:24)
[2024-03-20] MEDS ORDERED: Diazepam 5 MG TAB ONE (06:25)
[2024-03-20] MEDS ORDERED: Iopamidol 370 76% 100 ML VIAL ONE (10:28)
== END 2024-03-20 11:15 | disposition home or self-care (01) ==
LOC: CCL 05:32
PROVIDERS: ATTEND Internal Medicine Cardiovascular Disease
PROC: 4A023N7 Measurement of Cardiac Sampling and Pressure, Left Heart, Percutaneous Approach (ICD-10-PCS; principal; 2024-03-20)
DX: I25.10 Atherosclerotic heart disease of native coronary artery without angina pectoris (principal); I10 Essential (primary) hypertension; E11.9 Type 2 diabetes mellitus without complications; E78.5 Hyperlipidemia, unspecified; N40.0 Benign prostatic hyperplasia without lower urinary tract symptoms; R94.39 Abnormal result of other cardiovascular function study; Z95.5 Presence of coronary angioplasty implant and graft; Z91.041 Radiographic dye allergy status; Z79.84 Long term (current) use of oral hypoglycemic drugs; Z79.02 Long term (current) use of antithrombotics/antiplatelets; Z79.82 Long term (current) use of aspirin; Z79.899 Other long term (current) drug therapy
CPT/HCPCS: 93458; C1769; C1894; J1644; J2250; J3010; 99152; J0153

== ENCOUNTER 2024-04-10 08:00 | Inpatient (IN) | payer MEDICARE, OTHER ==
[2024-04-12] MEDS ORDERED: Dexamethasone 4 mg/ml Vial ONE (06:28)
[2024-04-12] MEDS ORDERED: EPINEPHrine 1 MG/ML VIAL ONE (06:28)
[2024-04-12] MEDS ORDERED: Bupivacaine PF 0.5% 30 ML VIAL ONE (06:29)
[2024-04-12] MEDS ORDERED: Albumin 5% 500 ML ONE (06:29)
[2024-04-12] MEDS ORDERED: PHENYLEPHRINE-NS 100 MCG/ML 10 ML SYRINGE ONE ×2 (06:29→08:34)
[2024-04-12] MEDS ORDERED: Lidocaine 1% MPF 2 ML VIAL ONE (06:31)
[2024-04-12] MEDS ORDERED: Heparin 10,000 UNITS/1 ML VIAL 30,000 UNITS in Sodium Chloride 0.9% 1,000 ML FS SCH (06:45)
[2024-04-12] MEDS ORDERED: Papaverine 60 MG/2 ML VIAL ONE ×2 (06:57→07:17)
[2024-04-12] MEDS ORDERED: Midazolam HCl 2 mg/2 ml Vial ONE ×4 (07:07→13:00)
[2024-04-12] MEDS ORDERED: Insulin Regular, Human 100 UNIT/ML 10 ML VIAL ONE (07:13)
[2024-04-12] MEDS ORDERED: Vancomycin 1 GM VIAL ONE (07:17)
[2024-04-12] MEDS ORDERED: Heparin 30,000 units/30 ml VIAL ONE (07:17)
[2024-04-12] MEDS ORDERED: Lidocaine 2% PF 100 mg/5 ml Syringe ONE (07:17)
[2024-04-12] MEDS ORDERED: Aminocaproic Acid 5 GM/20 ML VIAL ONE (07:17)
[2024-04-12] MEDS ORDERED: Heparin 5,000 UNITS/ML VIAL ONE (07:17)
[2024-04-12] MEDS ORDERED: Sodium Bicarb 50 mEq/50 ML VIAL ONE (07:17)
[2024-04-12] MEDS ORDERED: Mannitol 12.5 GM/50 ML ONE (07:17)
[2024-04-12] MEDS ORDERED: Protamine Sulfate 250 MG/25 ML VIAL ONE (07:17)
[2024-04-12] MEDS ORDERED: Calcium Chloride 1 GM/10 ML Abboject SYRINGE ONE (07:17)
[2024-04-12] MEDS ORDERED: Cardioplegic Soln 1,000 ML BAG ONE (07:17)
[2024-04-12] MEDS ORDERED: Thrombin 5000 UNITS/5 ML VIAL ONE (07:17)
[2024-04-12] MEDS ORDERED: Magnesium 5 GM/10 ML VIAL ONE (07:17)
[2024-04-12] MEDS ORDERED: Potassium Chloride 60 mEq (30 mL) VIAL ONE (07:17)
[2024-04-12] MEDS ORDERED: PROPOFOL 20 ML ONE ×2 (07:20→08:34)
[2024-04-12] MEDS ORDERED: Fentanyl 250 MCG/5 ML VIAL ONE (07:20)
[2024-04-12] MEDS ORDERED: CEFAZOLIN 2 GM VIAL ONE (07:21)
[2024-04-12] MEDS ORDERED: Lidocaine 1% PF 5 ML VIAL ONE (07:21)
[2024-04-12] MEDS ORDERED: Rocuronium Bromide 10 MG/ML (10ML VIAL) ONE ×3 (07:21→10:57)
[2024-04-12] MEDS ORDERED: Phenylephrine 40 MG/NS 250 ML 250 ML ONE (07:22)
[2024-04-12] MEDS ORDERED: ePHEDrine Sulfate 50 MG/10 ML VIAL ONE (08:23)
[2024-04-12] MEDS ORDERED: Heparin 10,000 UNITS/ 10 ML VIAL ONE (11:12)
[2024-04-12] MEDS ORDERED: hydrALAZINE 20 MG/ML VIAL SLOW IVP PRN (13:02)
[2024-04-12] MEDS ORDERED: fentaNYL 50 mcg/mL 1 mL Vial SLOW IVP PRN (13:02)
[2024-04-12] MEDS ORDERED: traMADol HCl 50 MG TAB PO PRN (13:02)
[2024-04-12] MEDS ORDERED: NOREPINEPHRINE 8 MG/250 ML-D5W 250 ML IVPB PRN (13:02)
[2024-04-12] MEDS ORDERED: Albumin 5% 12.5 GM (250 mL) BOT IVPB PRN ×2 (13:02)
[2024-04-12] MEDS ORDERED: Bisacodyl 10 MG SUPP PR PRN (13:02)
[2024-04-12] MEDS ORDERED: niCARdipine 25 MG in Sodium Chloride 0.9% 250 ML 250 ML IVPB PRN (13:02)
[2024-04-12] MEDS ORDERED: Promethazine HCl 25 MG/ML VIAL IM PRN (13:02)
[2024-04-12] MEDS ORDERED: Bisacodyl 5 MG TAB PO PRN (13:02)
[2024-04-12] MEDS ORDERED: Mag-Al 1200 mg/1200 mg/30 ML UDCUP PO PRN (13:02)
[2024-04-12] MEDS ORDERED: Ipratropium/Albuterol 3 ML NEB NEB PRN (13:02)
[2024-04-12] MEDS ORDERED: traZODone HCl 50 MG TAB PO PRN (13:05)
[2024-04-12 13:15] LABS: INR-International Normal Ratio 1.3; Prothrombin Time 16.2 sec (12.0-14.7)
[2024-04-12] MEDS ORDERED: Electrolyte Replacement Protocol 1 EACH FS SCH (13:30)
[2024-04-12 13:36] LABS: Actual Bicarbonate (HCO3a) 22.2 mEq/L (22-28); Base Excess (BEa) -4.1 mEq/L (-2.0 to +3.0); CO2 Tension 45.8 mmHg (35.0-45.0); Calcium, Ionized (arterial) 1.15 mmol/L (1.12-1.30); Hematocrit-ABG 30 % (42.0-52.0); Hemoglobin (Hb) 10.3 g/dL (14.0-18.0); O2 Tension (PaO2), arterial 189.6 mmHg (> 70.0); Potassium - ABG Lab 3.57 mmol/L (3.70-5.30); pH, Arterial 7.303 (7.35-7.45)
[2024-04-12 13:40] LABS: Puncture Site Arterial Line
[2024-04-12 13:53] LABS: #Basophils 0.03 10x3/uL (0.0-0.2); #Eosinophils Less than 0.03 10x3/uL (0.0-0.7); %Basophils 0.3 % (0.0-1.0); %Eosinophils 0.1 % (0.0-10.0); %Lymphocytes 12.5 % (21.0-51.0); %Monocytes 7.5 % (0.0-10.0); %Neutrophils 79.4 % (42.0-75.0); Hemoglobin 9.6 g/dL (14.0-18.0); Mean Corpuscular Hemoglobin 29.1 pg (27.0-31.0); Mean Corpuscular Volume 90.9 fL (78.0-98.0); Mean Platelet Volume 10.2 fL (7.4-10.4); Platelet Count 164 10x3/uL (130-400); RBC Distribution Width 14.3 % (11.5-14.5)
[2024-04-12 14:11] LABS: INR-International Normal Ratio 1.2; PTT 29.2 sec (22.9-36.1)
[2024-04-12] MEDS ORDERED: Dextrose 5% in Water 1,000 ML IV PRN (14:15)
[2024-04-12] MEDS ORDERED: Glucagon 1 MG/ML KIT SC PRN (14:15)
[2024-04-12] MEDS ORDERED: Dextrose 50% Abboject 50 ML SYRINGE SLOW IVP PRN (14:15)
[2024-04-12] MEDS ORDERED: Electrolyte Replacement Protocol FS PRN (14:15)
[2024-04-12 14:16] LABS: Anion Gap 12 mmol/L (10-20); BUN (Urea Nitrogen) 14 mg/dL (8.4-25.7); Calc. Creatinine Clearance 122 mL/min (70-130); Calcium 8.2 mg/dL (7.8-10.44); Carbon Dioxide 21 mmol/L (23-31); Chloride 113 mmol/L (98-107); Estimated GFR 94; Glucose 164 mg/dL (83-110); Potassium 3.7 mmol/L (3.5-5.1); Sodium 142 mmol/L (136-145)
[2024-04-12] MEDS: NS 0.9% w/ 20 MEQ KCL 1,000 ML IV SCH (14:23)
[2024-04-12] MEDS: Magnesium 2 GM/50 ML(in water) 2 GM in Premix 1 BAG IVPB SCH (14:23)
[2024-04-12] MEDS: INSULIN REGULAR IN 0.9 % NACL 100 UNITS in Premix 1 BAG IVPB SCH (14:23)
[2024-04-12] MEDS: CEFAZOLIN 2 GM in Sodium Chloride 0.9% 100 ML IVPB SCH (14:23)
[2024-04-12] MEDS: Nitroglycerin 50 MG/250 ML BOT 250 ML IVPB PRN (14:24)
[2024-04-12] MEDS: Post-Op Insulin Drip Protocol IVPB ONE (14:55)
[2024-04-12] MEDS: Morphine 2 MG/ML VIAL SLOW IVP PRN (16:05)
[2024-04-12] MEDS: Potassium Chloride 20 MEQ (100 mL) BAG IVPB PRN (16:17)
[2024-04-12 16:59] VITALS: BMI 29.8
[2024-04-12 19:00] LABS: Actual Bicarbonate (HCO3a) 21.5 mEq/L (22-28); Base Excess (BEa) -4.3 mEq/L (-2.0 to +3.0); CO2 Tension 42.6 mmHg (35.0-45.0); Calcium, Ionized (arterial) 1.05 mmol/L (1.12-1.30); Carboxyhemoglobin (COHb) 0.6 gm% (0.0-3.0); Hematocrit-ABG 29 % (42.0-52.0); Hemoglobin (Hb) 9.9 g/dL (14.0-18.0); Potassium - ABG Lab 2.97 mmol/L (3.70-5.30); pH, Arterial 7.321 (7.35-7.45)
[2024-04-12 19:02] LABS: O2 Tension (PaO2), arterial 39.7 mmHg (> 70.0); Puncture Site ALINE
[2024-04-12 19:13] LABS: Actual Bicarbonate (HCO3a) 22.4 mEq/L (22-28); Base Excess (BEa) -2.9 mEq/L (-2.0 to +3.0); CO2 Tension 40.9 mmHg (35.0-45.0); Carboxyhemoglobin (COHb) 0.5 gm% (0.0-3.0); Hematocrit-ABG 33 % (42.0-52.0); Hemoglobin (Hb) 11.3 g/dL (14.0-18.0); O2 Tension (PaO2), arterial 109.5 mmHg (> 70.0); Potassium - ABG Lab 3.75 mmol/L (3.70-5.30); pH, Arterial 7.356 (7.35-7.45)
[2024-04-12 19:14] LABS: Puncture Site ALINE
[2024-04-12 19:15] LABS: ALV-art Gradient 124.575 mmHg (0-20)
[2024-04-12] MEDS: fentaNYL 50 mcg/mL 1 mL Vial SLOW IVP PRN (19:36)
[2024-04-12] MEDS: Heparin 5,000 UNITS/ML VIAL SC SCH (19:55)
[2024-04-12] MEDS: Famotidine/PF 20 mg/2ml Vial SLOW IVP SCH (19:55)
[2024-04-12] MEDS: Tamsulosin HCl 0.4 MG CAP PO SCH (19:55)
[2024-04-12] MEDS: Atorvastatin Calcium 20 MG TAB PO SCH (19:55)
[2024-04-12 20:16] LABS: Hematocrit 31.7 % (42.0-52.0); Hemoglobin 10.4 g/dL (14.0-18.0)
[2024-04-12 20:30] LABS: Potassium 3.8 mmol/L (3.5-5.1)
[2024-04-12] MEDS: traMADol HCl 50 MG TAB PO PRN (20:58)
[2024-04-12] MEDS: Ondansetron PF 4 MG/2 ML Vial IVP PRN (20:58)
[2024-04-12] MEDS: Acetaminophen 325 MG TAB PO PRN (23:17)
[2024-04-13] MEDS: Lidocaine 4% Patch TD SCH (00:57)
[2024-04-13 05:13] LABS: #Basophils Less than 0.03 10x3/uL (0.0-0.2); #Eosinophils Less than 0.03 10x3/uL (0.0-0.7); %Lymphocytes 8.5 % (21.0-51.0); %Neutrophils 79.2 % (42.0-75.0); Hematocrit 29.6 % (42.0-52.0); Hemoglobin 9.8 g/dL (14.0-18.0); Mean Corpuscular HGB CONC 33.1 g/dL (32.0-36.0); Mean Corpuscular Hemoglobin 29.3 pg (27.0-31.0); Mean Corpuscular Volume 88.4 fL (78.0-98.0); Mean Platelet Volume 10.9 fL (7.4-10.4); Platelet Count 202 10x3/uL (130-400); RBC Distribution Width 14.7 % (11.5-14.5); Red Blood Cell (RBC) Count 3.35 mill/uL (4.70-6.10)
[2024-04-13 05:35] LABS: Phosphorus 2.7 mg/dL (2.3-4.7)
[2024-04-13 05:43] LABS: Anion Gap 10 mmol/L (10-20); BUN (Urea Nitrogen) 15 mg/dL (8.4-25.7); Calc. Creatinine Clearance 132 mL/min (70-130); Calcium 8.1 mg/dL (7.8-10.44); Carbon Dioxide 22 mmol/L (23-31); Chloride 111 mmol/L (98-107); Estimated GFR 96; Glucose 140 mg/dL (83-110); Potassium 4.1 mmol/L (3.5-5.1); Sodium 139 mmol/L (136-145)
[2024-04-13] MEDS ORDERED: Acetaminophen 500 MG TAB PO PRN (06:30)
[2024-04-13] MEDS: Insulin Glargine 30 UNITS/0.3 ML VIAL SC SCH (07:53)
[2024-04-13] MEDS ORDERED: Magnesium 2 GM/50 ML(in water) 2 GM in Premix 1 BAG IVPB SCH (08:00)
[2024-04-13] MEDS: Finasteride 5 MG TAB PO SCH (08:11)
[2024-04-13] MEDS: Magnesium 2 GM/50 ML(in water) 2 GM in Premix 1 BAG IVPB SCH (08:11)
[2024-04-13] MEDS: Famotidine 20 MG TAB PO SCH (08:11)
[2024-04-13] MEDS: Ezetimibe 10 MG TAB PO SCH (08:11)
[2024-04-13] MEDS ORDERED: Lidocaine 4% Patch TD SCH (09:00)
[2024-04-13] MEDS ORDERED: Aspirin Chewable 81 MG TAB PO SCH (09:00)
[2024-04-13] MEDS: LIDOCAINE Patch Removal TOP SCH (11:03)
[2024-04-13] MEDS: Insulin Regular, Human 100 UNIT/ML 10 ML VIAL SC PRN (11:06)
[2024-04-13] MEDS ORDERED: Artificial Tear Ophth Sol 15 ML BOT EA EYE PRN (12:51)
[2024-04-13] MEDS ORDERED: diphenhydrAMINE 25 MG CAP PO PRN (12:51)
[2024-04-13] MEDS ORDERED: Nitroglycerin 0.4 MG TAB (25 Tab Bottle) SL PRN (12:51)
[2024-04-13] MEDS ORDERED: Mineral Oil ENEMA PR PRN (12:51)
[2024-04-13] MEDS ORDERED: Insulin Regular, Human 100 UNIT/ML 10 ML VIAL SC PRN (13:30)
[2024-04-13] MEDS: Metoprolol Tartrate 25 MG TAB PO SCH (20:23)
[2024-04-13] MEDS: Atorvastatin Calcium 40 MG TAB PO SCH (20:24)
[2024-04-13] MEDS: Aspirin 81 mg Enteric Coated Tablet PO SCH (20:24)
[2024-04-13] MEDS ORDERED: Transdermal Patch Removal TOP SCH (21:00)
[2024-04-14 06:40] LABS: #Basophils 0.03 10x3/uL (0.0-0.2); #Eosinophils Less than 0.03 10x3/uL (0.0-0.7); %Basophils 0.3 % (0.0-1.0); %Lymphocytes 18.1 % (21.0-51.0); %Monocytes 13.2 % (0.0-10.0); Hematocrit 28.3 % (42.0-52.0); Hemoglobin 9.3 g/dL (14.0-18.0); Mean Corpuscular HGB CONC 32.9 g/dL (32.0-36.0); Mean Corpuscular Hemoglobin 29.6 pg (27.0-31.0); Mean Corpuscular Volume 90.1 fL (78.0-98.0); Mean Platelet Volume 10.3 fL (7.4-10.4); Platelet Count 186 10x3/uL (130-400); RBC Distribution Width 15.1 % (11.5-14.5); Red Blood Cell (RBC) Count 3.14 mill/uL (4.70-6.10)
[2024-04-14 07:05] LABS: Anion Gap 12 mmol/L (10-20); BUN (Urea Nitrogen) 19 mg/dL (8.4-25.7); Calc. Creatinine Clearance 124 mL/min (70-130); Calcium 8.5 mg/dL (7.8-10.44); Carbon Dioxide 23 mmol/L (23-31); Chloride 101 mmol/L (98-107); Estimated GFR 93; Glucose 248 mg/dL (83-110); Magnesium 2.1 mg/dL (1.6-2.6); Phosphorus 1.7 mg/dL (2.3-4.7); Potassium 4.7 mmol/L (3.5-5.1); Sodium 131 mmol/L (136-145)
[2024-04-14] MEDS: traMADol HCl 50 MG TAB PO PRN (08:10)
[2024-04-14] MEDS: metFORMIN 500 MG TAB PO SCH (08:10)
[2024-04-14] MEDS: Pioglitazone HCl 45 MG TAB PO SCH (08:11)
[2024-04-14] MEDS: PHOS-NAK 1 PKT PACK PO SCH (08:11)
[2024-04-14] MEDS: Senokot S 8.6-50 MG TAB PO SCH (08:11)
[2024-04-14] MEDS: glipiZIDE 10 MG TAB PO SCH (08:12)
[2024-04-14] MEDS: Furosemide 20 MG (2 mL) VIAL SLOW IVP SCH (13:23)
[2024-04-14] MEDS: Furosemide 20 MG TAB PO SCH (13:25)
[2024-04-14] MEDS: Guaifenesin DM 100-10/5 ML UDCUP PO PRN (17:41)
[2024-04-15 04:34] LABS: #Basophils 0.04 10x3/uL (0.0-0.2); %Basophils 0.4 % (0.0-1.0); %Eosinophils 0.3 % (0.0-10.0); %Lymphocytes 22.4 % (21.0-51.0); %Monocytes 12.7 % (0.0-10.0); %Neutrophils 63.7 % (42.0-75.0); Hematocrit 27.3 % (42.0-52.0); Hemoglobin 9.1 g/dL (14.0-18.0); Mean Corpuscular HGB CONC 33.3 g/dL (32.0-36.0); Mean Corpuscular Hemoglobin 29.3 pg (27.0-31.0); Mean Corpuscular Volume 87.8 fL (78.0-98.0); Mean Platelet Volume 10.5 fL (7.4-10.4); Platelet Count 176 10x3/uL (130-400); RBC Distribution Width 14.7 % (11.5-14.5); Red Blood Cell (RBC) Count 3.11 mill/uL (4.70-6.10)
[2024-04-15 04:51] LABS: Phosphorus 1.7 mg/dL (2.3-4.7)
[2024-04-15 04:52] LABS: Anion Gap 11 mmol/L (10-20); BUN (Urea Nitrogen) 18 mg/dL (8.4-25.7); Calc. Creatinine Clearance 121 mL/min (70-130); Calcium 8.6 mg/dL (7.8-10.44); Carbon Dioxide 26 mmol/L (23-31); Chloride 98 mmol/L (98-107); Estimated GFR 93; Glucose 190 mg/dL (83-110); Potassium 4.4 mmol/L (3.5-5.1); Sodium 131 mmol/L (136-145)
[2024-04-15] MEDS: Magnesium 2 GM/50 ML(in water) 2 GM in Premix 1 BAG IVPB SCH (08:06)
[2024-04-15] MEDS: PHOS-NAK 1 PKT PACK PO SCH (08:06)
[2024-04-15] MEDS: Furosemide 40 MG TAB PO SCH (14:54)
[2024-04-16 03:45] LABS: #Basophils 0.03 10x3/uL (0.0-0.2); %Basophils 0.4 % (0.0-1.0); %Eosinophils 1.1 % (0.0-10.0); %Lymphocytes 24.6 % (21.0-51.0); %Monocytes 16.3 % (0.0-10.0); %Neutrophils 57.2 % (42.0-75.0); Hematocrit 25.3 % (42.0-52.0); Hemoglobin 8.4 g/dL (14.0-18.0); Mean Corpuscular HGB CONC 33.2 g/dL (32.0-36.0); Mean Corpuscular Volume 87.2 fL (78.0-98.0); Mean Platelet Volume 10.3 fL (7.4-10.4); Platelet Count 186 10x3/uL (130-400); RBC Distribution Width 14.5 % (11.5-14.5)
[2024-04-16 04:02] LABS: Anion Gap 11 mmol/L (10-20); BUN (Urea Nitrogen) 22 mg/dL (8.4-25.7); Calc. Creatinine Clearance 120 mL/min (70-130); Calcium 8.6 mg/dL (7.8-10.44); Carbon Dioxide 28 mmol/L (23-31); Chloride 100 mmol/L (98-107); Estimated GFR 92; Glucose 116 mg/dL (83-110); Magnesium 1.9 mg/dL (1.6-2.6); Sodium 135 mmol/L (136-145)
[2024-04-16 07:58] VITALS: BP 113/62; TEMP 98.5
[2024-04-16] MEDS: Magnesium 2 GM/50 ML(in water) 2 GM in Premix 1 BAG IVPB SCH (08:04)
== END 2024-04-16 12:06 | disposition home or self-care (01) | DRG 236 ==
LOC: SURG A 04-12 06:04 → CCU 04-12 14:41 → PCU 04-13 21:34
PROVIDERS: ADMIT Student in an Organized Health Care Education/Training Program; ATTEND Student in an Organized Health Care Education/Training Program
PROC: 02100Z9 Bypass Coronary Artery, One Artery from Left Internal Mammary, Open Approach (ICD-10-PCS; principal; 2024-04-12)
PROC: 021109W Bypass Coronary Artery, Two Arteries from Aorta with Autologous Venous Tissue, Open Approach (ICD-10-PCS; 2024-04-12)
PROC: 06BQ0ZZ Excision of Left Saphenous Vein, Open Approach (ICD-10-PCS; 2024-04-12)
PROC: 5A1221Z Performance of Cardiac Output, Continuous (ICD-10-PCS; 2024-04-12)
PROC: 02L70CK Occlusion of Left Atrial Appendage with Extraluminal Device, Open Approach (ICD-10-PCS; 2024-04-12)
PROC: 6A550Z2 Pheresis of Platelets, Single (ICD-10-PCS; 2024-04-12)
PROC: 4A133R1 Monitoring of Arterial Saturation, Peripheral, Percutaneous Approach (ICD-10-PCS; 2024-04-12)
PROC: 3E033XZ Introduction of Vasopressor into Peripheral Vein, Percutaneous Approach (ICD-10-PCS; 2024-04-12)
PROC: 30233J1 Transfusion of Nonautologous Serum Albumin into Peripheral Vein, Percutaneous Approach (ICD-10-PCS; 2024-04-12)
DX: I25.10 Atherosclerotic heart disease of native coronary artery without angina pectoris (principal); I10 Essential (primary) hypertension; E11.9 Type 2 diabetes mellitus without complications; Z91.041 Radiographic dye allergy status; Z79.899 Other long term (current) drug therapy; Z79.01 Long term (current) use of anticoagulants; Z79.82 Long term (current) use of aspirin; N40.0 Benign prostatic hyperplasia without lower urinary tract symptoms; M19.90 Unspecified osteoarthritis, unspecified site; E78.00 Pure hypercholesterolemia, unspecified; Z98.890 Other specified postprocedural states; Z79.4 Long term (current) use of insulin
CPT/HCPCS: 36415; 36416; 36430; 71045; 71046; 80048; 80076; 82805; 83735; 84100; 85025; 85610; 85730; 86850; 86900; 86901; 93798; 94002; A4311; A4648; C1713; C1751; C1889; J0171; J0665; J1100; J1642; J1644; J1815; J1940; J2003; J2150; J2250; J2272; J2405; J2440; J2704; J2720; J3010; J3370; J3475; J3480; J3490; P9035; P9045; S0017

== ENCOUNTER 2024-04-10 13:26 | Outpatient (CLI) | payer MEDICARE, OTHER ==
[2024-04-10 15:19] LABS: #Basophils 0.05 10x3/uL (0.0-0.2); %Basophils 0.9 % (0.0-1.0); %Eosinophils 2.5 % (0.0-10.0); %Lymphocytes 39.8 % (21.0-51.0); %Monocytes 10.9 % (0.0-10.0); %Neutrophils 45.7 % (42.0-75.0); Hemoglobin 11.9 g/dL (14.0-18.0); Mean Corpuscular HGB CONC 32.2 g/dL (32.0-36.0); Mean Corpuscular Volume 90.2 fL (78.0-98.0); Mean Platelet Volume 10.4 fL (7.4-10.4); Platelet Count 200 10x3/uL (130-400); RBC Distribution Width 14.5 % (11.5-14.5)
[2024-04-10 15:34] LABS: INR-International Normal Ratio 0.9; PTT 25.7 sec (22.9-36.1); Prothrombin Time 12.3 sec (12.0-14.7)
[2024-04-10 15:39] LABS: ALT (SGPT) 15 U/L (8-55); AST (SGOT) 13 U/L (5-34); Albumin 3.8 g/dL (3.4-4.8); Alkaline Phosphatase 68 U/L (40-110); Anion Gap 10 mmol/L (10-20); BUN (Urea Nitrogen) 13 mg/dL (8.4-25.7); Bilirubin, Direct 0.2 mg/dL (0.1-0.3); Bilirubin, Total 0.5 mg/dL (0.2-1.2); Calc. Creatinine Clearance 0 mL/min (70-130); Calcium 9.5 mg/dL (7.8-10.44); Carbon Dioxide 28 mmol/L (23-31); Chloride 102 mmol/L (98-107); Estimated GFR 91; Glucose 159 mg/dL (83-110); Potassium 4.4 mmol/L (3.5-5.1); Protein, Total 6.6 g/dL (5.8-8.1); Sodium 136 mmol/L (136-145)
== END 2024-04-10 13:27 | disposition home or self-care (01) ==
LOC: LABBT 13:26
PROVIDERS: ATTEND Student in an Organized Health Care Education/Training Program
DX: Z01.818 Encounter for other preprocedural examination (principal); M65.311 Trigger thumb, right thumb
CPT/HCPCS: 71046; 80048; 80076; 85025; 85610; 85730